=== PATIENT | female | born 2000 | race Hispanic/Latino ===

== ENCOUNTER 2021-02-02 21:14 | Emergency (ER) ==
[2021-02-02] MEDS ORDERED: Acetaminophen 500 MG TAB ONE (21:43)
[2021-02-02] MEDS ORDERED: diphenhydrAMINE 50 MG/ML VIAL ONE (21:43)
[2021-02-02] MEDS ORDERED: Prochlorperazine 10 MG/2 ML VIAL IVP SCH (22:00)
[2021-02-02 22:02] LABS: #Lymphocytes 0.5 thou/uL (1.20-3.40); #Monocytes 0.3 thou/uL (0.11-0.59); %Basophils 0.2 % (0.0-1.0); %Eosinophils 0.2 % (0.0-10.0); %Monocytes 3.8 % (0.0-10.0); %Neutrophils 87.9 % (42.0-75.0); Hemoglobin 12.5 g/dL (12.0-16.0); Mean Corpuscular HGB CONC 35.2 g/dL (32.0-36.0); Mean Corpuscular Hemoglobin 33.4 pg (27.0-31.0); Mean Platelet Volume 8.1 fL (7.4-10.4); Platelet Count 176 thou/uL (130-400); Red Blood Cell (RBC) Count 3.75 mill/uL (4.20-5.40); White Blood Cell (WBC) Count 6.8 thou/uL (4.8-10.8)
[2021-02-02 22:21] LABS: ALT (SGPT) 28 U/L (8-55); AST (SGOT) 13 U/L (5-34); Albumin 3.7 g/dL (3.5-5.0); Alkaline Phosphatase 69 U/L (40-110); Anion Gap 12 mmol/L (10-20); BUN (Urea Nitrogen) 6 mg/dL (7.0-18.7); Bilirubin, Total 0.7 mg/dL (0.2-1.2); Calc. Creatinine Clearance 0 mL/min (70-130); Calcium 8.8 mg/dL (7.8-10.44); Carbon Dioxide 19 mmol/L (22-29); Chloride 107 mmol/L (98-107); Globulin 2.9 g/dL (2.4-3.5); Glucose 92 mg/dL (70-105); Lipase 18 U/L (8-78); Potassium 3.5 mmol/L (3.5-5.1); Protein, Total 6.6 g/dL (6.0-8.3); Sodium 134 mmol/L (136-145)
== END 2021-02-02 23:58 | disposition home or self-care (01) ==
LOC: ERS 21:14
DX: O21.1 Hyperemesis gravidarum with metabolic disturbance (principal); Z3A.11 11 weeks gestation of pregnancy
CPT/HCPCS: 36415; 76856; 80053; 83690; 84702; 85025; 93976; 96365; 96375; J0780; J1200

== ENCOUNTER 2021-02-04 03:58 | Emergency (ER) | payer SELFPAY ==
[2021-02-04 04:37] LABS: #Basophils 0.1 thou/uL (0.0-0.2); #Eosinphils 0.1 thou/uL (0.0-0.7); #Monocytes 0.5 thou/uL (0.11-0.59); #Neutrophils 2.7 thou/uL (1.40-6.50); %Basophils 1.7 % (0.0-1.0); %Eosinophils 2.2 % (0.0-10.0); %Lymphocytes 36.5 % (21.0-51.0); %Monocytes 9.1 % (0.0-10.0); %Neutrophils 50.6 % (42.0-75.0); Hemoglobin 12.5 g/dL (12.0-16.0); Mean Corpuscular HGB CONC 35.3 g/dL (32.0-36.0); Mean Corpuscular Hemoglobin 33.3 pg (27.0-31.0); Mean Corpuscular Volume 94.3 fL (78.0-98.0); Mean Platelet Volume 8.1 fL (7.4-10.4); Platelet Count 197 thou/uL (130-400); RBC Distribution Width 11.1 % (11.5-14.5); Red Blood Cell (RBC) Count 3.76 mill/uL (4.20-5.40); White Blood Cell (WBC) Count 5.4 thou/uL (4.8-10.8)
[2021-02-04 04:58] LABS: ALT (SGPT) 26 U/L (8-55); AST (SGOT) 22 U/L (5-34); Albumin 3.9 g/dL (3.5-5.0); Alkaline Phosphatase 75 U/L (40-110); Anion Gap 14 mmol/L (10-20); BUN (Urea Nitrogen) 7 mg/dL (7.0-18.7); Bilirubin, Total 0.4 mg/dL (0.2-1.2); Calc. Creatinine Clearance 0 mL/min (70-130); Carbon Dioxide 17 mmol/L (22-29); Chloride 109 mmol/L (98-107); Globulin 3.1 g/dL (2.4-3.5); Glucose 116 mg/dL (70-105); Lipase 63 U/L (8-78); Potassium 3.5 mmol/L (3.5-5.1); Sodium 136 mmol/L (136-145)
[2021-02-04 05:00] LABS: Bilirubin Negative (Negative); Blood, Urine Negative (Negative); Clarity Extra Turbid (Clear); Glucose, Urine (Dipstick) Normal (Negative); Ketone, Urine Trace mg/dL (Negative); Leukocyte 500 Leu/uL (Negative); Nitrite Negative (Negative); Protein, Urine (Dipstick) 10 mg/dL (Neg-Trace); RBC/HPF 0-3 HPF (0-3); Specific Gravity, Urine 1.019 (1.002-1.036); Urobilinogen 6 mg/dL (Less than 2)
[2021-02-04 05:01] LABS: Bacteria/HPF 3+ HPF (None Seen)
== END 2021-02-04 05:50 | disposition home or self-care (01) ==
LOC: ERS 03:58
DX: N39.0 Urinary tract infection, site not specified (principal)
CPT/HCPCS: 36415; 76705; 80053; 81003; 81015; 83690; 84702; 85025; 86900; 86901; 87077; 87086

== ENCOUNTER 2022-08-20 11:10 | Emergency (ER) | payer OTHER, SELFPAY ==
[2022-08-20 14:38] LABS: SARS-CoV-2 NAA Rapid Test Not Detected (NotDetected)
== END 2022-08-20 14:15 | disposition home or self-care (01) ==
LOC: ERS 11:10
DX: B34.9 Viral infection, unspecified (principal); Z20.822 Contact with and (suspected) exposure to COVID-19
CPT/HCPCS: 87081; 87430; 99283